=== PATIENT | female | born 1980 | race Two or more races ===

== ENCOUNTER 2024-02-02 16:11 | Emergency (ER) | payer MEDICAID, OTHER ==
[~2024-02-02] VITALS: Ht 154.9 cm; Wt 54.0 kg
[2024-02-02] MEDS: cloNIDine HCL 0.1 MG TAB PO ONE (16:38)
[2024-02-02 17:31] LABS: Basophils # (auto) 0 10 ^3/uL (0-0.2); Basophils % (auto) 0.5 % (0.0-2.0); Eosinophils # (auto) 0.1 10 ^3/uL (0-0.8); Eosinophils % (auto) 1.3 % (0.0-7.0); Hematocrit 45.8 % (36.0-46.0); Hemoglobin 15.8 g/dL (12.2-16.2); Lymphocytes # (auto) 1.3 10 ^3/uL (0.4-5.4); Lymphocytes % (auto) 20.6 % (10.0-50.0); Mean Corpuscular Hemoglobin 28.7 pg (28.0-32.0); Mean Corpuscular Hgb Conc. 34.4 g/dL (32.0-36.0); Mean Corpuscular Volume 83.4 fL (80.0-100.0); Monocytes # (auto) 0.3 10 ^3/uL (0-1.3); Monocytes % (auto) 5.4 % (0.0-12.0); Neutrophils # (auto) 4.5 10 ^3/uL (1.6-8.6); Neutrophils % (auto) 72.2 % (37.0-80.0); Nucleated Red Blood Cells % 0.1 %; Red Blood Cells 5.49 10^6/uL (4.0-5.20); Red Cell Distribution Width 14.1 % (11.8-14.3); White Blood Cell 6.3 10^3/uL (4.4-10.8)
[2024-02-02 17:35] LABS: Chloride 106 mmol/L (98-107); Potassium 3.8 mmol/L (3.5-5.1); Sodium 138 mmol/L (136-145)
[2024-02-02 17:36] LABS: Anion Gap 5 (5-15); Carbon Dioxide 27 mmol/L (20-30)
[2024-02-02 17:37] LABS: Calcium 9.6 mg/dL (8.5-10.1)
[2024-02-02 17:42] LABS: BUN/Creatinine Ratio 15.4 (10.0-20.0); Blood Urea Nitrogen 10 mg/dL (9-23); Glucose 104 mg/dL (74-106)
[2024-02-02 18:50] LABS: Urine Bacteria FEW /hpf (None Seen); Urine Blood TRACE /uL (Negative); Urine Clarity Turbid (Clear); Urine Color Colorless (Yellow); Urine Mucus FEW (None Seen); Urine Protein, UAD Negative (Negative); Urine Urobilinogen Normal (Negative); Urine WBC 9 /hpf (0 - 5); Urine pH 6.5 (5.0-9.0)
[2024-02-02] MEDS: ALPRAZolam 0.5 MG TAB PO ONE (18:52)
[2024-02-02 19:30] VITALS: BP 134/95; PULSE 82; RESP 19; O2SAT 96
[2024-02-02] MEDS ORDERED: NITROFURANTOIN 100 mg CAP PO ONE (20:00)
[2024-02-02] MEDS ORDERED: LISI10TA34 PO (20:04)
[2024-02-02] MEDS ORDERED: CLON0.2T PO (20:04)
[2024-02-02] MEDS ORDERED: ALPR1TAB2 PO (20:04)
[2024-02-02] MEDS ORDERED: NITR-87 PO (20:05)
== END 2024-02-02 21:01 | disposition home or self-care (01) ==
LOC: EDBD 16:11 → ER 16:11
DX: I10 Essential (primary) hypertension (principal); N39.0 Urinary tract infection, site not specified; F41.9 Anxiety disorder, unspecified; F32.9 Major depressive disorder, single episode, unspecified
CPT/HCPCS: 36415; 80048; 81001; 85025; 93005

== ENCOUNTER 2024-02-03 21:03 | Emergency (ER) | payer MEDICAID ==
[~2024-02-03] VITALS: Ht 154.9 cm; Wt 56.0 kg
[~2024-02-03 21:03] MED LIST: ALPR1TAB2 PO; CLON0.2T PO; LISI10TA34 PO; NITR-87 PO
[2024-02-03 21:29] LABS: Basophils # (auto) 0.1 10 ^3/uL (0-0.2); Basophils % (auto) 0.8 % (0.0-2.0); Eosinophils # (auto) 0.2 10 ^3/uL (0-0.8); Eosinophils % (auto) 2.5 % (0.0-7.0); Hematocrit 46.9 % (36.0-46.0); Hemoglobin 16.3 g/dL (12.2-16.2); Lymphocytes # (auto) 2.2 10 ^3/uL (0.4-5.4); Lymphocytes % (auto) 31.4 % (10.0-50.0); Mean Corpuscular Hemoglobin 29.2 pg (28.0-32.0); Mean Corpuscular Hgb Conc. 34.8 g/dL (32.0-36.0); Monocytes # (auto) 0.4 10 ^3/uL (0-1.3); Neutrophils # (auto) 4.1 10 ^3/uL (1.6-8.6); Neutrophils % (auto) 59.3 % (37.0-80.0); Nucleated Red Blood Cells % 0.1 %; Red Blood Cells 5.59 10^6/uL (4.0-5.20); Red Cell Distribution Width 14.1 % (11.8-14.3); White Blood Cell 6.9 10^3/uL (4.4-10.8)
[2024-02-03] MEDS: cloNIDine HCL 0.1 MG TAB PO ONE (21:39)
[2024-02-03 21:40] VITALS: BP 169/119; PULSE 84; RESP 17; TEMP 98.2; O2SAT 98
[2024-02-03 21:44] LABS: Alanine Aminotransferase 17 U/L (7-40); Albumin 4.6 g/dL (3.2-4.8); Alkaline Phosphatase 61 U/L (46-116); Anion Gap 6 (5-15); Aspartate Aminotransferase 8 U/L (13-40); Blood Urea Nitrogen 14 mg/dL (9-23); Calcium 9.9 mg/dL (8.7-10.4); Carbon Dioxide 27 mmol/L (20-30); Chloride 106 mmol/L (98-107); Glucose 98 mg/dL (74-106); Potassium 3.9 mmol/L (3.5-5.1); Sodium 139 mmol/L (136-145)
[2024-02-03 21:45] LABS: Bilirubin, Total 0.6 mg/dL (0.2-1.0); Total Protein 7.8 g/dL (5.7-8.2)
== END 2024-02-03 22:36 | disposition left against medical advice (07) ==
LOC: ER 21:03
DX: R07.89 Other chest pain (principal); M25.512 Pain in left shoulder; M25.511 Pain in right shoulder; N39.0 Urinary tract infection, site not specified; Z53.21 Procedure and treatment not carried out due to patient leaving prior to being seen by health care provider
CPT/HCPCS: 36415; 71045; 80053; 84484; 85025; 93005

== ENCOUNTER 2024-02-22 19:15 | Emergency (ER) | payer MEDICAID ==
[~2024-02-22] VITALS: Ht 154.9 cm; Wt 57.0 kg
[2024-02-22 19:26] VITALS: BP 155/89; PULSE 68; RESP 16; TEMP 99.2; O2SAT 98
[2024-02-22] MEDS: BACLOFEN 10 MG TAB PO ONE (20:02)
[2024-02-22] MEDS: ALPRAZolam 0.5 MG TAB PO ONE (20:02)
[2024-02-22] MEDS: cloNIDine HCL 0.1 MG TAB PO ONE (20:06)
[2024-02-22] MEDS ORDERED: ALPR0.5T PO (20:20)
[2024-02-22] MEDS ORDERED: BACL10TA PO (20:20)
== END 2024-02-22 21:16 | disposition home or self-care (01) ==
LOC: ER 19:15
DX: I10 Essential (primary) hypertension (principal); G89.29 Other chronic pain; M79.10 Myalgia, unspecified site; F41.9 Anxiety disorder, unspecified; F32.9 Major depressive disorder, single episode, unspecified; Z79.899 Other long term (current) drug therapy

== ENCOUNTER 2024-06-15 00:37 | Inpatient (IN) | payer MEDICAID ==
[~2024-06-15] VITALS: Ht 154.9 cm; Wt 60.1 kg
[2024-06-15] VITALS (8 sets, daily range): BP systolic 90–106; BP diastolic 51–67; PULSE 64–90; RESP 16–18; TEMP 97.8–98.7; O2SAT 94–100
[~2024-06-15 00:37] MED LIST changes: +ALPR0.5T PO; +BACL10TA PO
[2024-06-15 01:21] LABS: Basophils # (auto) 0 10 ^3/uL (0-0.2); Basophils % (auto) 0.5 % (0.0-2.0); Eosinophils # (auto) 0.2 10 ^3/uL (0-0.8); Hematocrit 39.9 % (36.0-46.0); Hemoglobin 13.6 g/dL (12.2-16.2); Lymphocytes # (auto) 1.7 10 ^3/uL (0.4-5.4); Mean Corpuscular Hemoglobin 29.5 pg (28.0-32.0); Mean Corpuscular Hgb Conc. 34.1 g/dL (32.0-36.0); Mean Corpuscular Volume 86.5 fL (80.0-100.0); Monocytes # (auto) 0.3 10 ^3/uL (0-1.3); Monocytes % (auto) 4.2 % (0.0-12.0); Neutrophils # (auto) 4.5 10 ^3/uL (1.6-8.6); Neutrophils % (auto) 67.3 % (37.0-80.0); Platelet Count (auto) 260 10^3/uL (140-450); Red Blood Cells 4.61 10^6/uL (4.0-5.20); Red Cell Distribution Width 14.1 % (11.8-14.3); White Blood Cell 6.7 10^3/uL (4.4-10.8)
[2024-06-15] MEDS: SODIUM CHLORIDE 0.9% 1,000 ML IV ONE (01:29)
[2024-06-15] MEDS: diphenhdrAMINE HCL 50 MG/1 ML VL IV ONE (01:30)
[2024-06-15 01:40] LABS: Alanine Aminotransferase 32 U/L (7-40); Albumin 4.5 g/dL (3.2-4.8); Alkaline Phosphatase 58 U/L (46-116); Anion Gap 4 (5-15); Aspartate Aminotransferase 24 U/L (13-40); BUN/Creatinine Ratio 17.7 (10.0-20.0); Blood Urea Nitrogen 14 mg/dL (9-23); Calcium 9.5 mg/dL (8.7-10.4); Carbon Dioxide 29 mmol/L (20-31); Chloride 105 mmol/L (98-107); Glucose 106 mg/dL (74-106); Magnesium 2.2 mg/dL (1.6-2.6); Potassium 4.1 mmol/L (3.5-5.1); Sodium 138 mmol/L (136-145)
[2024-06-15 01:41] LABS: Bilirubin, Total 0.3 mg/dL (0.2-1.0); Total Protein 7.4 g/dL (5.7-8.2)
[2024-06-15 03:34] LABS: Salicylate < 3.0 mg/dL (-30)
[2024-06-15 03:47] LABS: Acetaminophen < 2.0 UG/ML (10.0-20.0)
[2024-06-15] MEDS ORDERED: NITROGLYCERIN 0.4 MG SL TAB SL PRN (04:30)
[2024-06-15] MEDS ORDERED: MORPHINE SULFATE INJ 2 MG/ml SYRG IV PRN ×2 (04:30→14:30)
[2024-06-15] MEDS ORDERED: ONDANSETRON HCL 4 MG/2 ML VIAL IV PRN (04:30)
[2024-06-15] MEDS ORDERED: DOCUSATE SOD 100 MG CAP PO PRN (04:30)
[2024-06-15] MEDS: ENOXAPARIN SOD 40 MG/0.4 ML SYRINGE SC SCH (04:38)
[2024-06-15] MEDS: SODIUM CHLORIDE 0.9% 1,000 ML IV SCH (04:39)
[2024-06-15] MEDS ORDERED: VANCOMYCIN PER PHARMACY 0 MG IV SCH (05:00)
[2024-06-15 05:23] LABS: Alanine Aminotransferase 28 U/L (7-40); Albumin 3.9 g/dL (3.2-4.8); Alkaline Phosphatase 51 U/L (46-116); Anion Gap 3 (5-15); Aspartate Aminotransferase 21 U/L (13-40); BUN/Creatinine Ratio 17.1 (10.0-20.0); Blood Urea Nitrogen 13 mg/dL (9-23); Calcium 8.7 mg/dL (8.7-10.4); Carbon Dioxide 27 mmol/L (20-31); Chloride 108 mmol/L (98-107); Glucose 103 mg/dL (74-106); Potassium 4.3 mmol/L (3.5-5.1); Sodium 138 mmol/L (136-145)
[2024-06-15 05:24] LABS: Bilirubin, Total 0.3 mg/dL (0.2-1.0); Total Protein 6.4 g/dL (5.7-8.2)
[2024-06-15] MEDS ORDERED: LORazepam 2MG/ML-1ML VIAL IV SCH ×2 (06:00)
[2024-06-15] MEDS ORDERED: LORazepam 2MG/ML-1ML VIAL IV PRN (06:00)
[2024-06-15] MEDS: SODIUM CHLOR 0.9% PF (SALINE LOCK) 10ML VIAL/SYR IV SCH (06:04)
[2024-06-15] MEDS: VANCOMYCIN 1GM/200ML PREMIX IV ONE (06:30)
[2024-06-15] MEDS ORDERED: TRAM50TA2 PO ×2 (08:02→08:14)
[2024-06-15] MEDS ORDERED: QUET100T47 PO (08:14)
[2024-06-15] MEDS ORDERED: FLUO-125 PO (08:14)
[2024-06-15] MEDS ORDERED: MAGN400T40 PO (08:14)
[2024-06-15] MEDS ORDERED: CLON0.2D6 PO (08:14)
[2024-06-15] MEDS ORDERED: ATOM40CA6 PO (08:14)
[2024-06-15] MEDS ORDERED: HYDROcodone-ACET 10/325MG TAB PO PRN (14:30)
[2024-06-15] MEDS: HYDROcodone-ACET 10/325MG TAB PO PRN (15:08)
[2024-06-15] MEDS: traMADol HCL 50 MG TAB PO SCH (22:00)
[2024-06-15] MEDS: MORPHINE SULFATE INJ 2 MG/ml SYRG IV PRN (22:00)
[2024-06-15] MEDS: FLUoxetine HCL 20 MG CAP PO SCH (22:00)
[2024-06-16] VITALS (8 sets, daily range): BP systolic 90–138; BP diastolic 51–105; PULSE 64–91; RESP 17–20; TEMP 97.6–98.7; O2SAT 93–100
[2024-06-16] MEDS: QUEtiapine FUMARATE 100 MG TAB PO SCH (00:22)
[2024-06-16] MEDS: BACLOFEN 10 MG TAB PO SCH (01:07)
[2024-06-16 07:55] LABS: Basophils # (auto) 0 10 ^3/uL (0-0.2); Basophils % (auto) 0.3 % (0.0-2.0); Eosinophils # (auto) 0.2 10 ^3/uL (0-0.8); Eosinophils % (auto) 2.5 % (0.0-7.0); Hematocrit 38.8 % (36.0-46.0); Hemoglobin 13.3 g/dL (12.2-16.2); Lymphocytes % (auto) 30.2 % (10.0-50.0); Mean Corpuscular Hemoglobin 29.7 pg (28.0-32.0); Mean Corpuscular Hgb Conc. 34.2 g/dL (32.0-36.0); Mean Corpuscular Volume 86.7 fL (80.0-100.0); Monocytes # (auto) 0.4 10 ^3/uL (0-1.3); Monocytes % (auto) 6.3 % (0.0-12.0); Neutrophils % (auto) 60.7 % (37.0-80.0); Nucleated Red Blood Cells % 0.1 %; Platelet Count (auto) 212 10^3/uL (140-450); Red Blood Cells 4.47 10^6/uL (4.0-5.20); Red Cell Distribution Width 13.7 % (11.8-14.3); White Blood Cell 6.6 10^3/uL (4.4-10.8)
[2024-06-16 08:07] LABS: Alanine Aminotransferase 24 U/L (7-40); Albumin 3.7 g/dL (3.2-4.8); Alkaline Phosphatase 51 U/L (46-116); Anion Gap 6 (5-15); Aspartate Aminotransferase 14 U/L (13-40); BUN/Creatinine Ratio 23.4 (10.0-20.0); Blood Urea Nitrogen 15 mg/dL (9-23); Calcium 9.1 mg/dL (8.7-10.4); Carbon Dioxide 26 mmol/L (20-31); Chloride 106 mmol/L (98-107); Glucose 84 mg/dL (74-106); Potassium 3.9 mmol/L (3.5-5.1); Sodium 138 mmol/L (136-145)
[2024-06-16 08:08] LABS: Bilirubin, Total 0.3 mg/dL (0.2-1.0); Total Protein 6.4 g/dL (5.7-8.2)
[2024-06-16] MEDS ORDERED: PATIENTS OWN MEDICATION (Lisinopril 10 MG) PO SCH (10:00)
[2024-06-17] VITALS (9 sets, daily range): BP systolic 108–144; BP diastolic 77–99; PULSE 65–77; RESP 16–20; TEMP 97.7–99.2; O2SAT 95–99
[2024-06-17] MEDS ORDERED: LORazepam 2MG/ML-1ML VIAL IV PRN (10:30)
[2024-06-17 11:11] LABS: Chloride 108 mmol/L (98-107); Sodium 139 mmol/L (136-145)
[2024-06-17 11:12] LABS: Anion Gap 7 (5-15); Calcium 9.4 mg/dL (8.7-10.4); Carbon Dioxide 24 mmol/L (20-31)
[2024-06-17 11:17] LABS: Blood Urea Nitrogen 14 mg/dL (9-23); Glucose 80 mg/dL (74-106)
[2024-06-17 11:26] LABS: Basophils # (auto) 0 10 ^3/uL (0-0.2); Basophils % (auto) 0.3 % (0.0-2.0); Eosinophils # (auto) 0.1 10 ^3/uL (0-0.8); Eosinophils % (auto) 1.5 % (0.0-7.0); Hematocrit 43.8 % (36.0-46.0); Hemoglobin 14.5 g/dL (12.2-16.2); Lymphocytes # (auto) 1.2 10 ^3/uL (0.4-5.4); Lymphocytes % (auto) 18.7 % (10.0-50.0); Mean Corpuscular Hemoglobin 29.3 pg (28.0-32.0); Mean Corpuscular Hgb Conc. 33.2 g/dL (32.0-36.0); Mean Corpuscular Volume 88.2 fL (80.0-100.0); Monocytes # (auto) 0.3 10 ^3/uL (0-1.3); Monocytes % (auto) 4.9 % (0.0-12.0); Neutrophils # (auto) 4.8 10 ^3/uL (1.6-8.6); Neutrophils % (auto) 74.6 % (37.0-80.0); Nucleated Red Blood Cells % 0.1 %; Platelet Count (auto) 212 10^3/uL (140-450); Red Blood Cells 4.97 10^6/uL (4.0-5.20); Red Cell Distribution Width 13.5 % (11.8-14.3); White Blood Cell 6.5 10^3/uL (4.4-10.8)
[2024-06-17] MEDS: CHOLECALCIFEROL (VITD3) 1,000UNIT=25mCg TAB PO ONE (13:12)
[2024-06-18 01:00] VITALS: BP 155/97; PULSE 68; RESP 16; TEMP 98.3; O2SAT 98
[2024-06-18 05:00] VITALS: BP 150/98; PULSE 70; RESP 16; TEMP 98.2; O2SAT 96
[2024-06-18 08:00] VITALS: PULSE 69
[2024-06-18] MEDS: CHOLECALCIFEROL (VITD3) 1,000UNIT=25mCg TAB PO SCH (08:49)
== END 2024-06-18 11:27 | disposition home or self-care (01) | DRG 53 ==
LOC: EDBD 00:37 → ER 00:37 → TELE 04:23 → TELE-CENTR 06:22
PROVIDERS: ADMIT Internal Medicine; ATTEND Internal Medicine
DX: G40.909 Epilepsy, unspecified, not intractable, without status epilepticus (principal); L89.153 Pressure ulcer of sacral region, stage 3; E86.1 Hypovolemia; M48.02 Spinal stenosis, cervical region; F41.9 Anxiety disorder, unspecified; F12.10 Cannabis abuse, uncomplicated; I10 Essential (primary) hypertension; F31.9 Bipolar disorder, unspecified; T50.995A Adverse effect of other drugs, medicaments and biological substances, initial encounter; Z59.00 Homelessness unspecified; Z82.3 Family history of stroke; Z82.49 Family history of ischemic heart disease and other diseases of the circulatory system; Y92.89 Other specified places as the place of occurrence of the external cause
CPT/HCPCS: 36415; 70450; 70551; 71045; 72141; 80048; 80053; 80329; 82140; 82306; 82550; 82565; 82607; 83036; 83605; 83735; 84443; 84484; 84702; 85025; 93005; 93970; 97110; 97116; 97163; 97530; G0378

== ENCOUNTER 2025-01-10 18:27 | Emergency (ER) | payer MEDICAID ==
[~2025-01-10 18:27] MED LIST changes: +ATOM40CA6 PO; +CLON0.2D6 PO; +FLUO-125 PO; -LISI10TA34 PO; +MAGN400T40 PO; +QUET100T47 PO
== END 2025-01-10 20:33 | disposition left against medical advice (07) ==
LOC: ER 18:27
DX: M79.18 Myalgia, other site (principal); Z53.21 Procedure and treatment not carried out due to patient leaving prior to being seen by health care provider